=== PATIENT | female | born 2000 | race African-American/Black ===

== ENCOUNTER 2024-01-20 18:31 | Emergency (ER) | payer BC ==
[~2024-01-20] VITALS: Ht 154.9 cm; Wt 60.5 kg
[2024-01-20 18:40] VITALS: TEMP 98.1
[2024-01-20] MEDS ORDERED: NS 1,000 ML IV ONE (19:00)
[2024-01-20 19:18] LABS: BASO # 0.1 K/mm3 (0.0-0.2); BASO % 0.4 % (0.0-2.0); EOS % 0.1 % (0.0-4.0); GRAN # 11.2 K/mm3 (1.4-6.5); GRAN % 83.7 % (42.2-75.2); HEMOGLOBIN 11.7 g/dl (12.5-16.0); LYMPH # 1.3 K/mm3 (1.2-3.4); LYMPH % 9.8 % (20.0-51.0); MEAN CELL VOLUME 89 fl (80.0-100.0); MEAN CORPUSCULAR HEMOGLOBIN 31 pg (27-31); MEAN CORPUSCULAR HGB CONC 35 g/dl (33.0-37.0); MONO # 0.8 K/mm3 (0.1-0.6); MONO % 5.7 % (1.7-9.3); PLATELET COUNT 315 K/mm3 (130-400); RED BLOOD COUNT 3.78 M/mm3 (4.10-5.30); REDCELL DISTRIBUTION WIDTH-CV 10.5 % (11.5-14.5)
[2024-01-20 19:29] LABS: HEMATOCRIT 33.6 % (37.0-47.0)
[2024-01-20 19:34] LABS: ALBUMIN 4.6 g/dL (3.5-5.0); BILIRUBIN,TOTAL 0.6 mg/dL (0.2-1.2); CALCIUM 10.2 mg/dL (8.4-10.2); CREATININE, serum 0.95 mg/dL (0.57-1.11); POTASSIUM 3.5 mEq/L (3.5-4.5); TOTAL PROTEIN 8.2 g/dl (6.2-8.1)
[2024-01-20] MEDS ORDERED: Ketorolac 30 MG/ML VIAL IV ONE (19:45)
[2024-01-20] MEDS ORDERED: Acetaminophen 500 MG TAB PO ONE (19:45)
[2024-01-20] MEDS ORDERED: Rho(D) Imm Globulin 1,500 UNITS (300 MCG)/2 ML SYRINGE IV\\IM SCH (22:35)
[2024-01-20 23:22] VITALS: BP 102/59; PULSE 91
== END 2024-01-20 23:22 | disposition home or self-care (01) ==
LOC: COL.ER 18:31
PROVIDERS: Nurse Practitioner Primary Care
DX: O03.9 Complete or unspecified spontaneous abortion without complication (principal)
CPT/HCPCS: J1885; J2791; J7030

== ENCOUNTER 2024-01-21 19:17 | Emergency (ER) | payer BC ==
[~2024-01-21] VITALS: Ht 154.9 cm; Wt 60.5 kg
[2024-01-21] MEDS ORDERED: Ketorolac 15 MG/ML VIAL IV ONE (19:45)
[2024-01-21 19:55] LABS: BASO % 0.2 % (0.0-2.0); EOS # 0.1 K/mm3 (0.0-0.7); EOS % 0.4 % (0.0-4.0); GRAN # 9.8 K/mm3 (1.4-6.5); GRAN % 78.8 % (42.2-75.2); LYMPH # 1.8 K/mm3 (1.2-3.4); LYMPH % 14.2 % (20.0-51.0); MEAN CELL VOLUME 90 fl (80.0-100.0); MEAN CORPUSCULAR HGB CONC 35 g/dl (33.0-37.0); MEAN PLATELET VOLUME 8.9 fl (7.4-10.4); MONO # 0.7 K/mm3 (0.1-0.6); PLATELET COUNT 255 K/mm3 (130-400); RED BLOOD COUNT 3.05 M/mm3 (4.10-5.30); REDCELL DISTRIBUTION WIDTH-CV 10.6 % (11.5-14.5)
[2024-01-21 19:56] LABS: HEMATOCRIT 27.4 % (37.0-47.0); HEMOGLOBIN 9.5 g/dl (12.5-16.0); MEAN CORPUSCULAR HEMOGLOBIN 31 pg (27-31)
[2024-01-21] MEDS ORDERED: LR 1,000 ML IV ONE (20:00)
[2024-01-21 21:14] VITALS: BP 104/64; PULSE 72; TEMP 98.5
== END 2024-01-21 21:14 | disposition home or self-care (01) ==
LOC: COL.ER 19:17
PROVIDERS: Family Medicine
DX: O03.4 Incomplete spontaneous abortion without complication (principal); D64.9 Anemia, unspecified; E86.0 Dehydration
CPT/HCPCS: J1885; J7120